=== PATIENT | female | born 1995 | race Two or more races ===

== ENCOUNTER 2019-08-13 17:04 | Emergency (ER) | payer OTHER ==
[2019-08-13 17:17] VITALS: BP 113/77
--- NOTE | 2019-08-13 17:45 | ER Document Report ---
ED Medical Screen (RME) - General Chief Complaint: Dizziness Stated Complaint: DIZZINESS Time Seen by Provider: 08/13/19 17:43 Primary Care Provider: JT TEJADA MD [Primary Care Provider] - Follow up as needed Notes: This is a 23-year-old female presented emergency room today stating that she was in the store got a little bit dizzy had a lot of cramping to her lower abdomen on the right side she is 23 weeks she has had an ultrasound she had no spotting or bleeding although she has not checked since the event shows feel much better now - Related Data Allergies/Adverse Reactions: amoxicillin Allergy (Verified 08/13/19 17:41) Penicillins Allergy (Verified 08/13/19 17:41) Physical Exam - Vital signs Vitals: Temp Pulse Resp BP Pulse Ox 98.4 F 112 H 14 113/77 98 08/13/19 17:15 08/13/19 17:15 08/13/19 17:15 08/13/19 17:15 08/13/19 17:15 Course - Vital Signs Vital signs: Temp Pulse Resp BP Pulse Ox 98.4 F 112 H 14 113/77 98 08/13/19 17:15 08/13/19 17:15 08/13/19 17:15 08/13/19 17:15 08/13/19 17:15 Doctor's Discharge - Discharge Referrals: JT TEJADA MD [Primary Care Provider] - Follow up as needed
[2019-08-13 18:36] LABS: ABSOLUTE EOSINOPHILS # (AUTO) 0.1 10^3/uL (0.0-0.6); ABSOLUTE LYMPHOCYTES (AUTO) 1.4 10^3/uL (0.5-4.7); ABSOLUTE MONOCYTES (AUTO) 0.7 10^3/uL (0.1-1.4); ABSOLUTE NEUT (AUTO) 7.9 10^3/uL (1.7-8.2); BASOPHILS % (AUTO) 0.3 % (0-2); EOSINOPHILS % (AUTO) 0.7 % (0-6); HEMATOCRIT 34.6 % (36.0-47.0); HEMOGLOBIN 11.7 g/dL (12.0-15.5); LYMPHOCYTES % (AUTO) 13.9 % (13-45); MEAN CORPUSCULAR HEMOGLOBIN 27.9 pg (27.0-33.4); MEAN CORPUSCULAR HGB CONC 33.9 g/dL (32.0-36.0); MEAN CORPUSCULAR VOLUME 82 fl (80-97); PLATELET COUNT 230 10^3/uL (150-450); RED BLOOD COUNT 4.21 10^6/uL (3.72-5.28); RED CELL DISTRIBUTION WIDTH 14.3 % (11.5-14.0); SEGMENTED NEUTROPHILS % (AUTO) 78.1 % (42-78); TOTAL CELLS COUNTED % (AUTO) 100 %; WHITE BLOOD COUNT 10.2 10^3/uL (4.0-10.5)
[2019-08-13 18:43] LABS: APPEARANCE,URINE SLIGHTLY-CLOUDY; BILIRUBIN,URINE NEGATIVE (NEGATIVE); COLOR,URINE YELLOW; GLUCOSE, URINE NEGATIVE (NEGATIVE); KETONES,URINE TRACE mg/dL (NEGATIVE); LEUKOCYTE ESTERASE,URINE SMALL (NEGATIVE); NITRITE,URINE NEGATIVE (NEGATIVE); PROTEIN,URINE 30 mg/dL (NEGATIVE); URINE SPECIFIC GRAVITY 1.024
[2019-08-13 19:04] LABS: ALBUMIN 3.8 g/dL (3.5-5.0); ALKALINE PHOSPHATASE 82 U/L (38-126); ANION GAP 7 (5-19); ASPARTATE AMINO TRANSFERASE 14 U/L (14-36); BILIRUBIN,TOTAL 0.5 mg/dL (0.2-1.3); BLOOD UREA NITROGEN 7 mg/dL (7-20); CALCIUM 9.2 mg/dL (8.4-10.2); CARBON DIOXIDE 22 mmol/L (22-30); CHLORIDE 107 mmol/L (98-107); GLUCOSE 83 mg/dL (75-110); POTASSIUM 3.9 mmol/L (3.6-5.0); TOTAL PROTEIN 7.3 g/dL (6.3-8.2)
== END 2019-08-13 18:55 | disposition left against medical advice (07) ==
LOC: EDSTATUS 17:04 → ER 17:04
DX: O26.92 Pregnancy related conditions, unspecified, second trimester (principal); R42 Dizziness and giddiness; R10.30 Lower abdominal pain, unspecified; Z3A.23 23 weeks gestation of pregnancy; Z88.0 Allergy status to penicillin
CPT/HCPCS: 36415; 80053; 81001; 84702; 85025; 86900; 86901; 99281

== ENCOUNTER 2019-11-29 23:04 | Outpatient (CLI) | payer MEDICAID ==
[2019-11-29 23:43] LABS: APPEARANCE,URINE CLEAR; BILIRUBIN,URINE NEGATIVE (NEGATIVE); COLOR,URINE YELLOW; GLUCOSE, URINE NEGATIVE (NEGATIVE); KETONES,URINE NEGATIVE (NEGATIVE); LEUKOCYTE ESTERASE,URINE TRACE (NEGATIVE); NITRITE,URINE NEGATIVE (NEGATIVE); PROTEIN,URINE NEGATIVE (NEGATIVE); URINE SPECIFIC GRAVITY 1.017; UROBILINOGEN,URINE NEGATIVE mg/dL (<2.0)
[2019-11-30 00:03] LABS: URINE AMPHETAMINES SCREEN NEGATIVE; URINE BARBITURATES SCREEN NEGATIVE; URINE BENZODIAZEPINES SCREEN NEGATIVE; URINE COCAINE SCREEN NEGATIVE; URINE MARIJUANA (THC) SCREEN NEGATIVE; URINE METHADONE SCREEN NEGATIVE; URINE PHENCYCLIDINE SCREEN NEGATIVE
[2019-11-30] MEDS ORDERED: MAG HYDROX/AL HYDROX/SIMETH SUSP 30 ML UDCUP ONE (00:46)
[2019-11-30] MEDS ORDERED: MAG HYDROX/AL HYDROX/SIMETH SUSP 30 ML UDCUP PO ONE (00:48)
== END 2019-11-30 01:03 | disposition home or self-care (01) ==
LOC: LC 23:04
PROVIDERS: ATTEND Obstetrics & Gynecology Gynecology
DX: O47.1 False labor at or after 37 completed weeks of gestation (principal); Z3A.39 39 weeks gestation of pregnancy
CPT/HCPCS: 59025; 81005; 80307; 84112; J3490

== ENCOUNTER 2019-12-07 22:25 | Outpatient (CLI) | payer MEDICAID ==
[2019-12-07 23:59] LABS: APPEARANCE,URINE SLIGHTLY-CLOUDY; BILIRUBIN,URINE NEGATIVE (NEGATIVE); COLOR,URINE YELLOW; GLUCOSE, URINE NEGATIVE (NEGATIVE); KETONES,URINE NEGATIVE (NEGATIVE); LEUKOCYTE ESTERASE,URINE TRACE (NEGATIVE); NITRITE,URINE NEGATIVE (NEGATIVE); PROTEIN,URINE NEGATIVE (NEGATIVE); URINE SPECIFIC GRAVITY 1.015; UROBILINOGEN,URINE NEGATIVE mg/dL (<2.0)
--- NOTE | 2019-12-08 00:10 | Non Stress Test Report ---
Non Stress Test Datetime Report Generated by CPN: 12/08/2019 00:09 DEMOGRAPHIC EGA NST: 40.1 INDICATION Indication for Study (NST) Other: Gestational age greater than 32 weeks VITAL SIGNS Temperature - NST: 98.6 Pulse - NST: 90 RESP - NST: 17 NBPSYS NST: 124 NBPDIA NST: 74 URINE RESULTS Urine Protein, NST: Negative Urine Ketones - NST: Negative Urine Glucose - NST: Negative Urine Blood - NST: Negative MONITORING Monitor Explained: Monitor Explained; Test Explained; Patient Verbalized Understanding Time on Monitor: 12/07/2019 22:41 Time off Monitor: 12/07/2019 23:42 NST Duration: 61 NST INTERVENTIONS NST Interventions: PO Hydration; Reposition Patient Physician Notified NST: Dr. Kevin BABY A Movement : Present Contraction Frequency : irregular FHR Baseline : 135 Accelerations : 15X15 Decelerations : None Variability : Moderate 6-25bpm NST Review: Meets Criteria for Reactive NST NST Review and Verified By : Jorge Luis Manriquez, RN NST Results: Reactive NST REPORT Report Trigger: Send Report
[2019-12-08 00:16] LABS: URINE AMPHETAMINES SCREEN NEGATIVE; URINE BARBITURATES SCREEN NEGATIVE; URINE BENZODIAZEPINES SCREEN NEGATIVE; URINE COCAINE SCREEN NEGATIVE; URINE MARIJUANA (THC) SCREEN NEGATIVE; URINE METHADONE SCREEN NEGATIVE; URINE PHENCYCLIDINE SCREEN NEGATIVE
== END 2019-12-07 23:56 | disposition home or self-care (01) ==
LOC: LC 22:25
PROVIDERS: ATTEND Obstetrics & Gynecology
DX: O47.1 False labor at or after 37 completed weeks of gestation (principal); Z3A.40 40 weeks gestation of pregnancy
CPT/HCPCS: 59025; 80307; 81005; 84112

== ENCOUNTER 2019-12-11 04:08 | Inpatient (IN) | payer MEDICAID ==
[2019-12-11] MEDS ORDERED: RINGERS SOLUTION,LACTATED 1,000 ML IV PRN (04:29)
[2019-12-11] MEDS ORDERED: RINGERS SOLUTION,LACTATED 1,000 ML IV ONE (04:29)
[2019-12-11 04:47] LABS: APPEARANCE,URINE SLIGHTLY-CLOUDY; BILIRUBIN,URINE NEGATIVE (NEGATIVE); COLOR,URINE YELLOW; GLUCOSE, URINE NEGATIVE (NEGATIVE); KETONES,URINE 20 mg/dL (NEGATIVE); LEUKOCYTE ESTERASE,URINE NEGATIVE (NEGATIVE); NITRITE,URINE NEGATIVE (NEGATIVE); PROTEIN,URINE 30 mg/dL (NEGATIVE); URINE SPECIFIC GRAVITY 1.018; UROBILINOGEN,URINE NEGATIVE mg/dL (<2.0)
[2019-12-11 05:03] LABS: URINE AMPHETAMINES SCREEN NEGATIVE; URINE BARBITURATES SCREEN NEGATIVE; URINE BENZODIAZEPINES SCREEN NEGATIVE; URINE COCAINE SCREEN NEGATIVE; URINE MARIJUANA (THC) SCREEN NEGATIVE; URINE METHADONE SCREEN NEGATIVE; URINE PHENCYCLIDINE SCREEN NEGATIVE
[2019-12-11 05:22] LABS: ABSOLUTE BASOPHILS # (AUTO) 0.1 10^3/uL (0.0-0.2); ABSOLUTE EOSINOPHILS # (AUTO) 0.1 10^3/uL (0.0-0.6); ABSOLUTE LYMPHOCYTES (AUTO) 2.3 10^3/uL (0.5-4.7); ABSOLUTE MONOCYTES (AUTO) 0.5 10^3/uL (0.1-1.4); ABSOLUTE NEUT (AUTO) 5.2 10^3/uL (1.7-8.2); BASOPHILS % (AUTO) 0.6 % (0-2); EOSINOPHILS % (AUTO) 1.3 % (0-6); HEMATOCRIT 31.5 % (36.0-47.0); HEMOGLOBIN 10.5 g/dL (12.0-15.5); LYMPHOCYTES % (AUTO) 27.7 % (13-45); MEAN CORPUSCULAR HEMOGLOBIN 24.2 pg (27.0-33.4); MEAN CORPUSCULAR HGB CONC 33.3 g/dL (32.0-36.0); MEAN CORPUSCULAR VOLUME 73 fl (80-97); MONOCYTES % (AUTO) 6.5 % (3-13); PLATELET COUNT 184 10^3/uL (150-450); RED BLOOD COUNT 4.34 10^6/uL (3.72-5.28); RED CELL DISTRIBUTION WIDTH 16.6 % (11.5-14.0); SEGMENTED NEUTROPHILS % (AUTO) 63.9 % (42-78); TOTAL CELLS COUNTED % (AUTO) 100 %; WHITE BLOOD COUNT 8.1 10^3/uL (4.0-10.5)
[2019-12-11] MEDS ORDERED: MISOPROSTOL 0.2 MG TABLET ONE (06:29)
[2019-12-11] MEDS ORDERED: EPHEDRINE SULFATE INJ 50 MG/1 ML AMPULE ONE (06:29)
[2019-12-11] MEDS ORDERED: OXYTOCIN 10 UNIT/ML VIAL ONE (06:29)
[2019-12-11] MEDS ORDERED: OXYTOCIN/0.9 % SODIUM CHLORIDE 30 UNIT/500 ML RTUINJ ONE (06:30)
[2019-12-11] MEDS ORDERED: FENTANYL/BUPIVACAINE/NS/PF 300 MCG/150 ML RTUINJ EPI ONE (06:30)
[2019-12-11] MEDS ORDERED: ROPIVACAINE HCL 0.2% INJ/PF (2 MG/ML) 20 ML SDV ONE (06:30)
[2019-12-11] MEDS ORDERED: LIDOCAINE 1% INJ-PF (10 MG/ML) 30 ML SDV ONE (06:30)
--- NOTE | 2019-12-11 06:50 | Admission Physical ---
Datetime Report Generated by CPN: 12/11/2019 06:49 CURRENT ADMISSION Hx Assessment: The History has been Reviewed and is Current Chief Complaint: Uterine Contractions; Suspected Ruptured Membranes Chief Complaint Other: Reports wakin this am with painful contractions and SROM at 0345 . Light green color fluid. No VB. GOod FM Admit Impression : Term, Intrauterine Admit Plan: Admit to Unit; Initiate Labor Protocol ALLERGIES Medication Allergies: Yes Medication Allergies: Penicillins/Hives (12/11/2019); amoxicillin/Hives (12/11/2019) Latex: No Latex Allergies Food Allergies: denies Environmental Allergies: denies OBSTETRICAL HISTORY EDC: 12/06/2019 00:00 : 2 Para: 1 Term: 1 : 0 SAB: 0 IAB: 0 Livin Cesareans: 0 VBACs: 0 Gestational Diabetes: No Rh Sensitization: No Incompetent Cervix: No KATE: No Infertility: Yes ART Treatment: No Uterine Anomaly: No IUGR: No Hx Previous C/S: No Macrosomia: No Hx Loss/Stillborn: No PIH: No Hx : No Placenta Previa/Abruption: No Depression/PP Depression: Yes PTL/PROM: No Post Hemorrhage: No Current Procedures: Ultrasound; NST Obstetrical History Comments: g1-2018, , male, IOL for postdates g2-current , infertility prior to this but was after HSG SEE RECORDS Alcohol: No Marijuana : No Cocaine: No Other Illicit Drugs: No Cigarettes: Never Smoker. [id number] MEDICAL HISTORY Diabetes: No Blood Transfusion: No Pulmonary Disease (Asthma, TB): No Breast Disease: No Hypertension: No Parts Coordinator Surgery: No Heart Disease: No Hosp/Surgery: Yes Autoimmune Disorder: No Anesthetic Complications: No Kidney Disease: No Abnormal Pap Smear: No Neuro/Epilepsy: No Psychiatric Disorders: No Other Medical Diseases: No Hepatitis/Liver Disease: No Significant Family History: No Varicosities/Phlebitis: No Trauma/Violence : No Thyroid Dysfunction: No Medical History Comments: childbirth x 1, depression-no meds, anxiety-no meds, HSG (hysterosalpingogram) INFECTIOUS HISTORY Gonorrhea: No Genital Herpes: No Chlamydia: No Tuberculosis: No Syphilis: No Hepatitis: No HIV/AIDS Exposure: No Rash or Viral Illness: No HPV: No PHYSICAL EXAM General: Normal HEENT: Normal Neurologic: Normal Thyroid: Normal Heart: Normal Lungs: Normal Breast: Normal Back: Normal Abdomen: Normal Genitourinary Exam: Normal Extremities: Normal DTRs: Normal Pelvic Type: Adequate Vital Signs: Reviewed; Within Normal Limits VAGINAL EXAM Dilatation: 2 Effacement: 50 Station: -3 Contraction Comments: regular contracions MEMBRANES Pooling: Positive Membranes: Ruptured Amniotic Fluid Color: Meconium, Light FETUS A EGA: 40.5 Monitoring: External US FHR- Baseline: 135 Variability: Moderate 6-25bpm Accelerations: 15X15 Decelerations: None FHR Category: Category I Presentation: Vertex Admit Comment: at 40.5 weeks EGA in active labor -Admit to LDR -CEFM and [place] -NPO and IVFs: LR at 125 cc/hr after a 1 liter bolus -GBS negative -Hx of one prior , anticipate PLANS FOR LABOR AND DELIVERY Labor and Delivery: Other, Specify Pain Management: Natural Feeding Preference: Breast Benefit of Breast Feed Discussed: Yes Circumcision: No INFORMED CONSENT Informed Consent Obtained: Vaginal Delivery; Section Delivery; Vacuum/Forceps Assist; Risks, Benefits and Alternatives Discussed Signature: with User ID: [email or web address] : with User ID: [email or web address]
[2019-12-11] MEDS ORDERED: OXYTOCIN/0.9 % SODIUM CHLORIDE 30 UNIT/500 ML RTUINJ IV PRN (10:02)
[2019-12-11] MEDS ORDERED: ACETAMINOPHEN 325 MG TABLET PO PRN (10:02)
[2019-12-11] MEDS ORDERED: PROMETHAZINE HCL INJ 25 MG/1 ML VIAL IV PRN (10:02)
[2019-12-11] MEDS ORDERED: DIPH/PERTUSS(ACELL)/TETANUS VAC/PF 0.5 ML SYR (>=10YO) IM PRN (10:02)
[2019-12-11] MEDS ORDERED: ACETAMINOPHEN WITH CODEINE #3 TABLET PO PRN ×2 (10:02)
[2019-12-11] MEDS ORDERED: DIPHENHYDRAMINE HCL 25 MG CAPSULE PO PRN (10:02)
[2019-12-11] MEDS ORDERED: MAGNESIUM HYDROXIDE SUSP 30 ML UDCUP PO PRN (10:02)
[2019-12-11] MEDS ORDERED: PSEUDOEPHEDRINE HCL 30 MG TABLET PO PRN (10:02)
[2019-12-11] MEDS ORDERED: DIBUCAINE 1% OINTMENT 28 GM TP PRN (10:02)
[2019-12-11] MEDS ORDERED: MISOPROSTOL 0.2 MG TABLET PR PRN (10:02)
[2019-12-11] MEDS ORDERED: GLYCERIN/WITCH HAZEL LEAF 1 EACH MED..WIPE TP PRN (10:02)
[2019-12-11] MEDS ORDERED: BENZOCAINE/MENTHOL AEROSOL SPRAY 56 ML TOP PRN (10:02)
[2019-12-11] MEDS ORDERED: MEASLES,MUMPS&RUBELLA VACC/PF 0.5 ML VIAL SUBCUT PRN (10:02)
[2019-12-11] MEDS ORDERED: PROMETHAZINE HCL 25 MG TABLET PO PRN (10:02)
[2019-12-11] MEDS ORDERED: NA PHOS,M-B/NA PHOS,DI-BA (ADULT) 133 ML ENEMA PR PRN (10:02)
[2019-12-11] MEDS ORDERED: ZOLPIDEM TARTRATE 5 MG TABLET PO PRN (10:02)
[2019-12-11] MEDS ORDERED: PROMETHAZINE HCL 25 MG SUPP.RECT PR PRN (10:02)
--- NOTE | 2019-12-11 10:03 | Warning Signs in Babies ---
VOD Warning Signs Datetime Report Generated by [facility]: 12/11/2019 10:02 VOD#608 -Warning Signs in Babies: Needs to be viewed. (11/29/2019 23:06:Krystal Trujillo RN)
[2019-12-11] MEDS ORDERED: IBUPROFEN 800 MG TABLET ONE (11:10)
[2019-12-11] MEDS: IBUPROFEN 800 MG TABLET PO SCH ×3 (11:11→22:17)
--- NOTE | 2019-12-11 11:58 | Delivery Summary ---
Del Sum A-C Datetime Report Generated by CPN: 12/11/2019 11:57 DELIVERY PERSONNEL DELIVERY PERSONNEL: [id number] Delivery Doctor:: Antonia Coulter CNM Labor and Delivery Nurse:: Krystal Trujillo RNfiberglass quality technician Nurse:: MICK Salazar Nursery Nurse:: Val Hou RN Student Observers:: Margareth Rajput Tech/LYRIC: Janel Mendez CNA II MATERNAL INFORMATION Delivery Anesthesia: Epidural Medications After Delivery: Pitocin 30 Units in 500ml NS/D5W; Cytotec 1000mcg Per Rectum/Vagina Delivery QBL: 400 Maternal Complications: None Provider Comments: VIRI VIABLE MALE WITH SPONTANEOUS CRY. CORD DOUBLE CLAMPED AND CUT. SPONTANESOUS INTACT PLACENTA WITH 3VC. NO LACERATIONS. MOTHER AND STABLE IN L_D#1 LABOR SUMMARY EDC: 12/06/2019 00:00 No. Babies in Womb: 1 Attempted: No Labor Anesthesia: Epidural LABOR INFORMATION Reason for Induction: Not Applicable Onset of Labor: 12/11/2019 06:23 Complete Dilatation: 12/11/2019 09:33 Oxytocin: N/A Group B Beta Strep: Negative Antibiotics # of Doses: 0 Name of Antibiotic Given: n/a Steroids Given: None Reason Steroids Not Administered: Not Applicable MEMBRANES Membranes Rupture Method: Spontaneous Rupture of Membranes: 12/11/2019 03:45 Length of Rupture (hr): 5.97 Amniotic Fluid Color: Light Meconium Amniotic Fluid Amount: Moderate Amniotic Fluid Odor: Normal STAGES OF LABOR Stage 1 hr: 3 Stage 1 min: 10 Stage 2 hr: 0 Stage 2 min: 10 Stage 3 hr: 0 Stage 3 min: 5 Total Time in Labor hr: 3 Total Time in Labor min: 25 VAGINAL DELIVERY Episiotomy: None Laceration #1: None Laceration Extension #1: N/A Laceration Repair: Not Applicable Sponge Count Correct: N/A Sharps Count Correct: N/A CSECTION DELIVERY Primary Indication: N/A Secondary Indication: N/A CSection Incidence: N/A Labor: N/A Elective: N/A CSection Incision: N/A BABY A INFORMATION Delivery Date/Time: 12/11/2019 09:43 Method of Delivery: Vaginal Nurse Controlled Delivery: No Born in Route : No : N/A Forceps: N/A Vacuum Extraction: N/A Shoulder Dystocia : Yes PRESENTATION/POSITION BABY A Presentation: Cephalic Cephalic Presentation: Vertex Vertex Position: Right Occipital Anterior Breech Presentation: N/A PLACENTA INFORMATION BABY A Placenta Delivery Time : 12/11/2019 09:48 Placenta Method of Delivery: Spontaneous Placenta Status: Delivered SCORES BABY A Heart Rate 1 min: >100 bpm Resp Effort 1 min: Good Cry Reflex Irritability 1 min: Cough or Sneeze or Pulls Away Muscle Tone 1 min: Active Motion Color 1 min: Blue/Pale Resuscitation Effort 1 min: Tactile Stimulation SCORE 1 MIN: 8 Heart Rate 5 min: >100 bpm Resp Effort 5 min: Good Cry Reflex Irritability 5 min: Cough or Sneeze or Pulls Away Muscle Tone 5 min: Active Motion Color 5 min: Body [place], Extremities Blue Resuscitation Effort 5 min: Tactile Stimulation SCORE 5 MIN: 9 INFANT INFORMATION BABY A Gestational Age at Delivery: 40.5 Gestational Status: Full Term- 39- 40.6 Weeks Infant Outcome : Liveborn Condition : Stable Infant Sex: Male IDENTIFICATION BABY A Infant Verification Date/Time: 12/11/2019 10:10 ID Band Number: [id number] Mother's Name Verified: Yes Infant RN Verifying Infant: C. Cassandra RN Additional Verifying Personnel: Aureliano Swartz SN WEIGHT/LENGTH BABY A Birthweight (gm): 4107 Weight (lb): 9 Weight (oz): 1 Length (in): 21.00 Length (cm): 53.34 CORD INFORMATION BABY A No. Cord Vessels: 3 Nuchal Cord : N/A Cord Blood Taken: Yes-For Eval (Mom's Blood Type - or O+) Suction: Mouth; Nose ASSESSMENT BABY A Complications: Multiple Late Decels; Meconium; Shoulder Dystocia Physical Findings at Delivery: Bruising Physical Findings- Other: on face Infant Respirations: Appears Normal Skin to Skin: Yes Skin to Skin Time (min): 60 Senior Specialist/ALS Called : No Infant Care By: Mar Hou RN Transferred To: Remains with Mother BABY B INFORMATION : N/A SIGNATURES Assignment: Elyse Brown MD Signature: with User ID: [email or web address] : with User ID: [email or web address] : I was personally available for consultation and serving as supervising physician for the MLP.
--- NOTE | 2019-12-11 11:58 | Birth Certificate Data ---
Cert Data Datetime Report Generated by CPN: 12/11/2019 11:57 CERTIFICATE DATA 47a. Care: Yes (11/29/2019 23:06:Tanisha Tomlinson RN) 47b. Date of First Visit: 05/05/2019 00:00 (11/29/2019 23:06:Krystal Trujillo RN) 47c. Date of Last Visit: 12/04/2019 00:00 (11/29/2019 23:06:Krystal Trujillo RN) 47d. Number of Visits: 15 (11/29/2019 23:06:Krystal Trujillo RN) 48a. Number of Prev Live Births: 1 (11/29/2019 23:06:Tanisha Tomlinson RN) 48b. Now Livin (11/29/2019 23:06:Tanisha Tomlinson RN) 48c. Live Births Now : 0 (11/29/2019 23:06:QS system process) 48d. Date of Last Live : 03/14/2017 00:00 (11/29/2019 23:06:Tanisha Tomlinson RN) 48e. Losses: 0 (11/29/2019 23:06:Krystal Trujillo RN) RISK FACTORS IN THIS 49a. Diabetes: No (11/29/2019 23:06:Tanisha Tomlinson RN) 49b. Hypertension: No (11/29/2019 23:06:Tanisha Tomlinson RN) 49c. Previous Births: 0 (11/29/2019 23:06:Tanisha Tomlinson RN) 49d. Stillborns: No (11/29/2019 23:06:Tanisha Tomlinson RN) 49d. IUGR: No (11/29/2019 23:06:Tanisha Tomlinson RN) 49e. Infertility Treatment: No (11/29/2019 23:06:Tanisha Tomlinson RN) 49f. Previous Cesareans: 0 (11/29/2019 23:06:Tanisha Tomlinson RN) Mother's Height 50b. Height Inches: 63 (12/11/2019 04:20:QS system process) Mother's Weight 51a. Pre- Weight (lbs): 218 (11/29/2019 23:06:Colin Hernandez RN) 51b. Weight at Delivery (lbs): 209 (12/11/2019 04:20:QS system process) 52. Dt Last Normal Menses Began: 03/01/2019 00:00 (11/29/2019 23:06:Krystal Trujillo RN) Infections Present/Treated 53a. Gonorrhea: No (11/29/2019 23:06:Tanisha Tomlinson RN) Results this Hospital Visit : Negative (11/29/2019 23:06:Colin Hernandez RN) 53b. Syphilis: No (11/29/2019 23:06:Tanisha Tomlinson RN) Results this Hospital Visit: NONREACTIVE (12/11/2019 05:07:QS system process) 53c. Chlamydia: No (11/29/2019 23:06:Tanisha Tomlinson RN) Results this Hospital Visit: Negative (11/29/2019 23:06:Colin Hernandez RN) 53d. Hepatitis B: No (11/29/2019 23:06:Tanisha Tomlinson RN) Results this Hospital Visit: Negative (11/29/2019 23:06:Tanisha Tomlinson RN) 53e. Hepatitis C: Negative (11/29/2019 23:06:Colin Hernandez RN) 53h. Mother Tested for HBsAG: Yes (11/29/2019 23:06:Tanisha Tomlinson RN) 53i. Date Tested: 05/05/2019 00:00 (11/29/2019 23:06:Colin Hernandez RN) 53j. Test Result: Negative (11/29/2019 23:06:Tanisha Tomlinson RN) Obstetric Procedures 54a, b, c. Obstetric Procedures: Ultrasound; NST (11/29/2019 23:06:Tanisha Tomlinson RN) Cigarette Smoking Cigarette Smoking: Never Smoker. [id number] (11/29/2019 23:06:Tanisha Tomlinson RN) 55a. 3 Months Before Preg - Ci (11/29/2019 23:06:Tanisha Tomlinson RN) 55a. Packs: 0 (11/29/2019 23:06:Tanisha Tomlinson RN) 55b. 1st Trimester of Preg- Ci (11/29/2019 23:06:Tanisha Tomlinson RN) 55b. Packs: 0 (11/29/2019 23:06:Tanisha Tomlinson RN) 55c. 2nd Trimester of Preg- Ci (11/29/2019 23:06:Tanisha Tomlinson RN) 55c. Packs: 0 (11/29/2019 23:06:Tanisha Tomlinson RN) 55d. 3rd Trimester of Preg- Ci (11/29/2019 23:06:Tanisha Tomlinson RN) 55d. Packs: 0 (11/29/2019 23:06:Tanisha Tomlinson RN) Onset of Labor 56a. PROM >12 Hrs: 5.97 (12/11/2019 05:28:QS system process) 56b. Precipitous Labor <3 Hrs: 3 (11/29/2019 23:06:QS system process) 56c. Prolonged Labor > 20 Hrs: 3 (11/29/2019 23:06:QS system process) 57a. Induction of Labor: N/A (11/29/2019 23:06:Krystal Trujillo RN) 57c. Non-Vertex Presentation A: Vertex (11/29/2019 23:06:Krystal Trujillo RN) 57d. Steroids - Lung Mat: None (11/29/2019 23:06:Krystal Trujillo RN) 57d. Steroids - Lung Mat: Not Applicable (11/29/2019 23:06:Krystal Trujillo RN) 57f. Mat [place] or Temp >100.4: 98.5 (11/29/2019 23:06:Krystal Trujillo RN) 57g. Moderate/Heavy Meconium: Light Meconium (12/11/2019 05:28:Colin Hernandez RN) 57h. Intolerance of Labor: N/A (11/29/2019 23:06:Krystal Trujillo RN) : N/A (11/29/2019 23:06:Krystal Trujillo RN) 57i. Epidural/Spinal Anesthesia: Epidural (11/29/2019 23:06:Krystal Trujillo RN) Method of Delivery 58a. Forceps - Unsuccessful A: N/A (11/29/2019 23:06:Krystal Trujillo RN) 58b. Vacuum - Unsuccessful A: N/A (11/29/2019 23:06:Krystal Trujillo RN) 58c. Presentation at 58c. Presentation at - A : Vertex (11/29/2019 23:06:Krsytal Trujillo RN) 58c. Presentation at - A : N/A (11/29/2019 23:06:Krystal Trujillo RN) 58c. Presentation at - A : Cephalic (11/29/2019 23:28:Tanisha Tomlinson RN) Final Route and Method of Del 58d. Baby A Route/Delivery: Vaginal (12/11/2019 09:43:Krystal Trujillo RN) 58e. Trial of Labor Attempted: No (11/29/2019 23:06:Krystal Trujillo RN) 58e. Trial of Labor Attempted A: N/A (11/29/2019 23:06:Krystal Trujillo RN) 58e. Trial of Labor Attempted B: N/A (11/29/2019 23:06:Krystal Trujillo RN) Maternal Morbidity 59b. 3rd or 4th Degree Lacs: None (11/29/2019 23:06:Krystaljuanita Trujillo RN) Birthweight Baby A: 4107 (11/29/2019 23:06:Krystal Trujillo RN) 60a. Pounds : 9 (11/29/2019 23:06:QS system process) 60b. Ounces: 1 (11/29/2019 23:06:QS system process) 61. GA at Delivery Baby A: 40.5 (11/29/2019 23:06:Krystal Trujillo RN) : Full Term- 39- 40.6 Weeks (11/29/2019 23:06:QS system process) 62a. 5 Minute Baby A: 9 (11/29/2019 23:06:QS system process)
[2019-12-11] MEDS: FERROUS SULFATE 325 MG TABLET PO SCH (18:30)
[2019-12-11] MEDS: DOCUSATE SODIUM 100 MG CAPSULE PO SCH (18:30)
[2019-12-11] MEDS: FAMOTIDINE 20 MG TABLET PO SCH (22:16)
[2019-12-12] MEDS: IBUPROFEN 800 MG TABLET PO SCH ×3 (05:50→22:24)
[2019-12-12 07:58] LABS: HEMATOCRIT 25.2 % (36.0-47.0); HEMOGLOBIN 8.5 g/dL (12.0-15.5); MEAN CORPUSCULAR HEMOGLOBIN 24.5 pg (27.0-33.4); MEAN CORPUSCULAR HGB CONC 33.7 g/dL (32.0-36.0); MEAN CORPUSCULAR VOLUME 73 fl (80-97); PLATELET COUNT 163 10^3/uL (150-450); RED BLOOD COUNT 3.45 10^6/uL (3.72-5.28); RED CELL DISTRIBUTION WIDTH 16.7 % (11.5-14.0); WHITE BLOOD COUNT 8.7 10^3/uL (4.0-10.5)
[2019-12-12] MEDS: DOCUSATE SODIUM 100 MG CAPSULE PO SCH ×2 (10:28→18:10)
[2019-12-12] MEDS: FERROUS SULFATE 325 MG TABLET PO SCH ×2 (10:28→18:10)
[2019-12-12] MEDS: PRENATAL VITAMIN W DHA CAPSULE PO SCH (10:28)
[2019-12-12] MEDS: FAMOTIDINE 20 MG TABLET PO SCH ×2 (10:28→22:23)
[2019-12-12] MEDS: SENNOSIDES/DOCUSATE 8.6-50 MG 1 EACH TABLET PO SCH (10:28)
--- NOTE | 2019-12-12 10:38 | PDOC PROGRESS REPORT ---
Subjective-OB Progress Note for:: 12/12/19 - PP day #1, doing well, UOB, voiding, Hgb 8.5. O negative/ Rubella Immune. breastfeedng Physical Exam (OB) Vital Signs: Temp Pulse Resp BP Pulse Ox 97.7 F 90 15 117/69 98 12/12/19 07:33 12/12/19 07:33 12/12/19 07:33 12/12/19 07:33 12/12/19 07:33 Intake & Output 12/11/19 12/12/19 12/13/19 06:59 06:59 06:59 Intake Total 2150 120 Balance 2150 120 Weight 95.1 kg - General General Appearance: Appears well, Alert In distress: None - PIH/Pre-Eclampsia Clonus: Negative Headache: Absent Epigastric Pain: No Visual Changes: No - Maternal Morbidity 59. Maternal Morbidity (serious complications experinced by the mother associated with labor and delivery: None of the above - Lochia Lochia Amount: Scant < 10 ml Lochia Color: Rubra/Red - Abdomen Description: Tender, Soft Hernia Present: No Fundal Description: Firm, Midline Fundal Height: u/u - u/2 - Respiratory Respiratory Status: No respiratory distress - Abdominal Distension: No distension Tenderness: Nontender - Genitourinary Genitourinary Note: voidng - Extremities Upper extremity: Normal inspection Lower extremities: Normal inspection - Neurological Cognition: Normal Orientation: AAOx4 - Psychological Associated symptoms: Normal affect, Normal mood - Skin Skin Temperature: Warm Skin Moisture: Dry Objective-Diagnostic Laboratory: 12/12/19 07:11 12/12/19 12/12/19 07:11 07:11 WBC 8.7 RBC 3.45 L Hgb 8.5 L Hct 25.2 L MCV 73 L MCH 24.5 L MCHC 33.7 RDW 16.7 H Plt Count 163 Blood Type O NEGATIVE Assessment and Plan(PN) - Assessment and Plan (1) Acute blood loss anemia Is this a current diagnosis for this admission?: Yes (2) Rh negative status during Qualifiers: Trimester: third trimester Qualified Code(s): O26.893 - Other specified related conditions, third trimester; Z67.91 - Unspecified blood type, Rh negative Is this a current diagnosis for this admission?: Yes (3) Normal vaginal delivery Is this a current diagnosis for this admission?: Yes (4) Spontaneous onset of labor Is this a current diagnosis for this admission?: Yes Plan:: IV iron today, iron rich foods, ambulation encouraged. Routine PP orders - Time Spent with Patient Time with patient: Less than 15 minutes Medications reviewed and adjusted accordingly: Yes - Disposition Anticipated Discharge Disposition: Home, Self Care Anticipated Discharge Timeframe: within 24 hours
[2019-12-12] MEDS ORDERED: IRON SUCROSE COMPLEX INJ/PF 100 MG/5 ML SDV IV ONE (11:00)
[2019-12-13] MEDS: IBUPROFEN 800 MG TABLET PO SCH (05:27)
[2019-12-13 07:52] VITALS: BP 110/63
[2019-12-13] MEDS: FERROUS SULFATE 325 MG TABLET PO SCH (10:31)
[2019-12-13] MEDS: FAMOTIDINE 20 MG TABLET PO SCH (10:31)
[2019-12-13] MEDS: DOCUSATE SODIUM 100 MG CAPSULE PO SCH (10:31)
--- NOTE | 2019-12-13 10:31 | PDOC DISCHARGE SUMMARY ---
Impression - Admit/DC Date/PCP Admission Date/Primary Care Provider: 12/11/19 04:36 JT TEJADA MD Discharge Date: 12/13/19 - PP Day #2, doing well, no complaints, UOB, voiding, Needs Rhogam prior to d/c home if baby is Rh+. . - Discharge Diagnosis (1) Acute blood loss anemia Is this a current diagnosis for this admission?: Yes (2) Rh negative status during Is this a current diagnosis for this admission?: Yes (3) Normal vaginal delivery Is this a current diagnosis for this admission?: Yes (4) Spontaneous onset of labor Is this a current diagnosis for this admission?: Yes - Additional Information Resuscitation Status: Full Code Discharge Diet: As Tolerated, Regular Discharge Activity: Activity As Tolerated Referrals: JT TEJADA MD [Primary Care Provider] - Prescriptions: Ferrous Sulfate [Feosol 325 mg Tablet] 325 mg PO DAILY #30 tablet Ibuprofen [Motrin 800 mg Tablet] 800 mg PO Q8 #60 tablet Home Medications: Vits96/Iron Fum/Folic [ Tablet] 1 tab PO DAILY 12/11/19 Ferrous Sulfate [Feosol 325 mg Tablet] 325 mg PO DAILY #30 tablet 12/13/19 Ibuprofen [Motrin 800 mg Tablet] 800 mg PO Q8 #60 tablet 12/13/19 HPI Reason(s) for Admission: Onset of Labor Procedures: Ultrasound Intrapartum Procedure(s): Spontaneous Vaginal Delivery Hospital Course 59. Maternal Morbidity (serious complications experinced by the mother ass ociated with labor and delivery: None of the above Results Laboratory Results: WBC 8.7 10^3/uL (4.0-10.5) 12/12/19 07:11 RBC 3.45 10^6/uL (3.72-5.28) L 12/12/19 07:11 Hgb 8.5 g/dL (12.0-15.5) L 12/12/19 07:11 Hct 25.2 % (36.0-47.0) L 12/12/19 07:11 MCV 73 fl (80-97) L 12/12/19 07:11 MCH 24.5 pg (27.0-33.4) L 12/12/19 07:11 MCHC 33.7 g/dL (32.0-36.0) 12/12/19 07:11 RDW 16.7 % (11.5-14.0) H 12/12/19 07:11 Plt Count 163 10^3/uL (150-450) 12/12/19 07:11 Lymph % (Auto) 27.7 % (13-45) 12/11/19 05:07 [place] % (Auto) 6.5 % (3-13) 12/11/19 05:07 Eos % (Auto) 1.3 % (0-6) 12/11/19 05:07 Baso % (Auto) 0.6 % (0-2) 12/11/19 05:07 Absolute Neuts (auto) 5.2 10^3/uL (1.7-8.2) 12/11/19 05:07 Absolute Lymphs (auto) 2.3 10^3/uL (0.5-4.7) 12/11/19 05:07 Absolute Monos (auto) 0.5 10^3/uL (0.1-1.4) 12/11/19 05:07 Absolute Eos (auto) 0.1 10^3/uL (0.0-0.6) 12/11/19 05:07 Absolute Basos (auto) 0.1 10^3/uL (0.0-0.2) 12/11/19 05:07 Seg Neutrophils % 63.9 % (42-78) 12/11/19 05:07 Urine Color YELLOW 12/11/19 04:15 Urine Appearance SLIGHTLY-CLOUDY 12/11/19 04:15 Urine pH 6.0 (5.0-9.0) 12/11/19 04:15 Ur Specific [place] 1.018 12/11/19 04:15 Urine Protein 30 mg/dL (NEGATIVE) H 12/11/19 04:15 Urine Glucose (UA) NEGATIVE mg/dL (NEGATIVE) 12/11/19 04:15 Urine Ketones 20 mg/dL (NEGATIVE) H 12/11/19 04:15 Urine Blood NEGATIVE (NEGATIVE) 12/11/19 04:15 Urine Nitrite NEGATIVE (NEGATIVE) 12/11/19 04:15 Urine Bilirubin NEGATIVE (NEGATIVE) 12/11/19 04:15 Urine Urobilinogen NEGATIVE mg/dL (<2.0) 12/11/19 04:15 Ur Leukocyte Esterase NEGATIVE (NEGATIVE) 12/11/19 04:15 Urine Ascorbic Acid NEGATIVE (NEGATIVE) 12/11/19 04:15 Membranes Rupture POSITIVE (NEGATIVE) H 12/11/19 04:25 Urine Opiates Screen NEGATIVE 12/11/19 04:15 Urine Methadone Screen NEGATIVE 12/11/19 04:15 Ur Barbiturates Screen NEGATIVE 12/11/19 04:15 Ur Phencyclidine Scrn NEGATIVE 12/11/19 04:15 Ur Amphetamines Screen NEGATIVE 12/11/19 04:15 U Benzodiazepines Scrn NEGATIVE 12/11/19 04:15 Urine Cocaine Screen NEGATIVE 12/11/19 04:15 U Marijuana (THC) Screen NEGATIVE 12/11/19 04:15 RPR NONREACTIVE (NONREACTIVE) 12/11/19 05:07 Blood Type O NEGATIVE 12/12/19 07:11 Antibody Screen NEGATIVE 12/11/19 05:07 Screen NEGATIVE 12/12/19 07:11 Plan Health Concerns: iron rich foods discussed Plan of Treatment: d/c home, f/up with [facility] in 4 wks for PP check Time Spent: Less than 30 Minutes
[2019-12-13] MEDS: SENNOSIDES/DOCUSATE 8.6-50 MG 1 EACH TABLET PO SCH (10:32)
[2019-12-13] MEDS: PRENATAL VITAMIN W DHA CAPSULE PO SCH (10:32)
== END 2019-12-13 14:00 | disposition home or self-care (01) | DRG 806 ==
LOC: LC 04:08 → LR 04:36 → 2S 12:05
PROVIDERS: ADMIT Obstetrics & Gynecology; ATTEND Obstetrics & Gynecology
PROC: 10E0XZZ Delivery of Products of Conception, External Approach (ICD-10-PCS; principal; 2019-12-11)
PROC: 3E0234Z Introduction of Serum, Toxoid and Vaccine into Muscle, Percutaneous Approach (ICD-10-PCS; 2019-12-13)
DX: O48.0 Post-term pregnancy (principal); Z37.0 Single live birth; O26.893 Other specified pregnancy related conditions, third trimester; O77.0 Labor and delivery complicated by meconium in amniotic fluid; D62 Acute posthemorrhagic anemia; O99.02 Anemia complicating childbirth; Z3A.40 40 weeks gestation of pregnancy; O76 Abnormality in fetal heart rate and rhythm complicating labor and delivery; O66.0 Obstructed labor due to shoulder dystocia; Z67.41 Type O blood, Rh negative
CPT/HCPCS: 1967; 36415; 80307; 81005; 84112; 85025; 85027; 85461; 86592; 86850; 86900; 86901; 94760; J1756; J2590; J2790; J2795; J3010; J3490

== ENCOUNTER 2020-01-02 22:28 | Emergency (ER) | payer MEDICAID ==
[2020-01-02 22:44] VITALS: BP 123/84
[2020-01-02] MEDS ORDERED: ACETAMINOPHEN 325 MG TABLET PO ONE (22:46)
--- NOTE | 2020-01-02 22:47 | ER Document Report ---
ED Medical Screen (RME) - General Chief Complaint: Abdominal Pain Stated Complaint: ABDOMINAL PAIN Time Seen by Provider: 01/02/20 22:39 Primary Care Provider: JT TEJADA MD [Primary Care Provider] - Follow up as needed Notes: Patient is a 24-year-old female presents emergency department with a chief complaint of upper abdominal pain. Patient states that about a week ago she was choking and got a chip and her did the Heimlich maneuver on her. Since then she has had pain. She has been taking ibuprofen 800 mg every 6 hours for pain. Exam: Tender upper abdomen. I have greeted and performed a rapid initial assessment of this patient. A comprehensive ED assessment and evaluation of the patient, analysis of test results and completion of medical decision making process will be conducted by an additional ED providers. - Related Data Allergies/Adverse Reactions: amoxicillin Allergy (Verified 12/11/19 04:17) Hives Penicillins Allergy (Verified 12/11/19 04:17) Hives Past Medical History Neurological Medical History: Denies: Hx Cerebrovascular Accident, Hx Seizures Psychiatric Medical History: Denies: Hx Depression Physical Exam - Vital signs Vitals: Temp Pulse Resp BP Pulse Ox 98.3 F 87 15 123/84 100 01/02/20 22:43 01/02/20 22:43 01/02/20 22:43 01/02/20 22:43 01/02/20 22:43 Course - Vital Signs Vital signs: Temp Pulse Resp BP Pulse Ox 98.3 F 87 15 123/84 100 01/02/20 22:43 01/02/20 22:43 01/02/20 22:43 01/02/20 22:43 01/02/20 22:43 Doctor's Discharge - Discharge Referrals: JT TEJADA MD [Primary Care Provider] - Follow up as needed
--- NOTE | 2020-01-02 23:47 | RADIOLOGY REPORT (SQ) ---
CLINICAL HISTORY: rib pain COMPARISON: None. TECHNIQUE: XR RIBS BILATERAL WITH CHEST 01/02/2020 10:45 PM RADIATION ONCOLOGY NURSE FINDINGS: Cardiac silhouette is normal in size. Lungs are clear without consolidation, atelectasis, mass or edema. There is no pleural effusion. There is no pneumothorax. There are no acute osseous findings. IMPRESSION: Clear lungs.
== END 2020-01-03 00:28 | disposition left against medical advice (07) ==
LOC: ER 22:28
DX: R10.10 Upper abdominal pain, unspecified (principal); R07.81 Pleurodynia; Z88.0 Allergy status to penicillin; Z53.20 Procedure and treatment not carried out because of patient's decision for unspecified reasons
CPT/HCPCS: 71111; 99281